=== PATIENT | male | born 1960 | race Caucasian/White ===

== ENCOUNTER 2017-09-27 22:03 | Emergency (ER) | payer OTHER ==
[~2017-09-27] VITALS: Ht 177.8 cm; Wt 85.0 kg
[2017-09-27 22:05] VITALS: BP 184/86; PULSE 92; RESP 16; TEMP 98; O2SAT 99
--- NOTE | 2017-09-27 22:44 | PD ---
HPI Chief Complaint: Injury Time Seen by Provider: 22:31 Travel History International Travel<30 days: No Contact w/Intl Traveler<30days: No Traveled to known affect area: No History of Present Illness HPI Patient is a 57-year-old male presenting to the emergency department evaluation of left shoulder pain. Patient states he lifted a 50 pound bag of sand 3 days ago and has had increasing pain since that time. Patient went to the urgent care center this morning and was given tramadol and a sling, he states this is not helping his pain and presented here. Patient reports that the pain is diffuse in the left shoulder radiating down his bicep and into his neck. He reports his pain is an 8 out of 10, exacerbated with movement. Symptom onset was gradual, severity is moderate, there are no alleviating factors. PFSH Past Medical History High Cholesterol: Yes Hypertension: Yes ?: Not Past Surgical History Surgical History: No Previous Surgery Social History Alcohol Use: No Tobacco Use: Yes (PACK AND HALF A DAY ) Substance Use: No Allergies-Medications (Allergen,Severity, Reaction): Coded Allergies: No Known Allergies (Verified Allergy, Mild, 02/27/06) Review of Systems Except as stated in HPI: all other systems reviewed are Neg Musculoskeletal: Positive: Myalgias, Arthralgias, Limited ROM, Pain Physical Exam Narrative GENERAL: Well-developed, well-nourished, alert elderly male. Presenting in no acute distress. Appears uncomfortable. SKIN: Warm and dry. HEAD: Normocephalic. EYES: No scleral icterus. No injection or drainage. NECK: Supple, trachea midline. No JVD or lymphadenopathy. CARDIOVASCULAR: Regular rate and rhythm without murmurs, gallops, or rubs. RESPIRATORY: Breath sounds equal bilaterally. No accessory muscle use. GASTROINTESTINAL: Abdomen soft, non-tender, nondistended. MUSCULOSKELETAL: No cyanosis, or edema. Decreased range of motion with flexion and abduction of left shoulder. Mildly tender to palpation anteriorly. BACK: Nontender without obvious deformity. No CVA tenderness. Data Data Last Documented VS Vital Signs Date Time Temp Pulse Resp B/P (MAP) Pulse Ox O2 Delivery O2 Flow Rate FiO2 09/27/17 22:05 98.0 92 16 184/86 (118) 99 Room Air Orders Orders Orphenadrine Inj (Norflex Inj) (09/27/17 22:45) Dexamethasone Inj (Decadron Inj) (09/27/17 22:45) Lidocaine 5% Patch.12 Hr (Lidoderm 5% Pa (09/27/17 22:45) Shoulder, Complete (>2vws) (09/27/17 ) MDM Medical Decision Making Medical Screen Exam Complete: Yes Emergency Medical Condition: Yes Interpretation(s) Vital Signs Date Time Temp Pulse Resp B/P (MAP) Pulse Ox O2 Delivery O2 Flow Rate FiO2 09/27/17 22:05 98.0 92 16 184/86 (118) 99 Room Air Differential Diagnosis Muscle strain versus spasm versus tendinitis versus less likely fracture versus tear Narrative Course Patient is a 57-year-old male that presented to the emergency department for evaluation of left shoulder pain after lifting sand a few days ago. He went to urgent care this morning was put in a sling which seemed to exacerbate the pain prompting the visit to the emergency department. Patient is neurovascularly intact, there are no focal deficits noted on exam. A Lidoderm patch was placed on patient's left shoulder, he was given Norflex and dexamethasone. X-ray shows calcific tendinitis, no fracture. Patient was reassessed, he reported improvement in his symptoms and was resting comfortably. Patient will be provided with prescriptions for use at home. Is encouraged to follow-up with her primary doctor. He was advised to avoid keeping his arm in the sling for extended periods of time to avoid frozen shoulder. He verbalized understanding of these instructions. Patient stable for discharge. Diagnosis Primary Impression: Tendonitis of left rotator cuff Referrals: Primary Care Physician Patient Instructions: Calcific Tendinitis (ED), Exercises for Internal and External Shoulder Rotation (ED), Exercises for Shoulder Flexion and Extension ( ED), General Instructions, Rotator Cuff Tendinitis (ED) Additional Instructions: Follow-up with your primary doctor Take medications as directed Continue gentle range of motion exercises, apply warm heat to affected area, avoid exacerbating activities Use sling sparingly for comfort, do not keep arm in sling to prevent frozen shoulder. Return to emergency department for any new or worsening symptoms Med/Other Pt SpecificInfo: Prescription(s) given Scripts Prednisone (Prednisone) 50 Mg Tab 50 MG PO DAILY for 3 Days, #3 TAB 0 Refills Prov: Zenobia Bagley 2/25/18 Cyclobenzaprine (Flexeril) 10 Mg Tab 10 MG PO TID Y for MUSCLE SPASM, #30 TAB 0 Refills Prov: Zenobia Bagley 09/27/17 Lidocaine (Lidoderm) 5 % Adh..patch 1 PATCH TOPICAL DAILY for 10 Days Prov: Zenobia Bagley 09/27/17 Disposition: 01 DISCHARGE HOME Condition: Stable Zenobia Bagley Sep 27, 2017 22:44
[2017-09-27] MEDS ORDERED: ORPHENADRINE INJ 60 MG/2 ML AMP IM ONE (22:45)
[2017-09-27] MEDS ORDERED: DEXAMETHASONE SOD PHOS 20 MG/5 ML VIAL IM ONE (22:45)
[2017-09-27] MEDS ORDERED: LIDOCAINE HCL 5% PATCH T-DERMAL ONE (22:45)
--- NOTE | 2017-09-27 23:01 | RADRPT ---
EXAM DATE/TIME: 09/27/2017 22:51 [facility] COMPARISON: No previous studies available for comparison. INDICATIONS : Left anterior shoulder pain, injured lifting heavy object MEDICAL HISTORY : None. SURGICAL HISTORY : None. ENCOUNTER: Initial ACUITY: 3 days PAIN SCORE: 7/10 LOCATION: Left Shoulder FINDINGS: Multiple view examination of the left shoulder demonstrates no evidence of fracture or dislocation. The glenohumeral and acromioclavicular joints are maintained. Mild degenerative changes of the acrom ioclavicular joint. Minimal calcifications cephalad to the humeral head. There is normal range of mot ion between internal and external rotation. Bony mineralization is normal. CONCLUSION: 1. No acute fracture or dislocation. 2. Mild acromioclavicular joint degenerative change. 3. Findings suggestive of minimal calcific tendinitis. Iker Espinoza MD on September 27, 2017 at 22:58 Board Certified Radiologist. This report was verified electronically.
[2017-09-27] MEDS ORDERED: PRED50 PO (23:32)
[2017-09-27] MEDS ORDERED: CYCL10TA PO (23:32)
[2017-09-27] MEDS ORDERED: LIDO1ADH4 TOPICAL (23:32)
== END 2017-09-27 23:42 | disposition home or self-care (01) ==
LOC: NEPD 22:03
DX: M75.32 Calcific tendinitis of left shoulder (principal); E78.00 Pure hypercholesterolemia, unspecified; I10 Essential (primary) hypertension; F17.200 Nicotine dependence, unspecified, uncomplicated
CPT/HCPCS: 73030; 96372; 99283; J1100; J2360